=== PATIENT | female | born 1970 | race Caucasian/White ===

== ENCOUNTER 2018-03-17 17:04 | Emergency (ER) | payer OTHER ==
[2018-03-17] MEDS ORDERED: ONDANSETRON 4 MG/2 ML VIAL ONE (18:40)
[2018-03-17] MEDS ORDERED: MORPHINE 4 MG/ML SYR ONE (18:40)
[2018-03-17 19:00] LABS: Absolute Lymphocytes (CBC) 2.1 K/uL (0.7-4.9); Absolute Monocytes 0.4 K/uL (0.1-1.3); Absolute Neutrophil 3.9 K/uL (1.8-8.0); Basophils % 0.7 % (0-1.3); Eosinophils % 1.7 % (0-4.4); Hematocrit 40.6 % (36.0-45.0); Lymphocytes % 32.4 % (15.3-44.8); MPV 8.7 fL (7.6-11.3); Monocytes % 5.6 % (3.3-12.3); RBC Red Blood Cell Count 4.36 M/uL (3.86-4.86)
[2018-03-17 19:14] LABS: BUN Blood Urea Nitrogen 9 mg/dL (7-18); Bicarbonate 31 mmol/L (21-32); Glucose Level 81 mg/dL (74-106); Potassium 3.7 mmol/L (3.5-5.1); Sodium Level 143 mmol/L (136-145)
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
[2018-03-17] MEDS ORDERED: FENTANYL CITR 100 MCG/2 ML ONE (20:45)
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
== END 2018-03-17 21:28 | disposition home or self-care (01) ==
LOC: ER 17:04
DX: S13.4XXA Sprain of ligaments of cervical spine, initial encounter (principal); S33.5XXA Sprain of ligaments of lumbar spine, initial encounter; V49.40XA Driver injured in collision with unspecified motor vehicles in traffic accident, initial encounter; F17.210 Nicotine dependence, cigarettes, uncomplicated
CPT/HCPCS: 36415; 70450; 70486; 71260; 72125; 74177; 76377; 80048; 85025; J2405; J3010; Q9967

== ENCOUNTER 2018-03-27 18:46 | Emergency (ER) | payer OTHER ==
[2018-03-27] MEDS ORDERED: DIAZEPAM 10 MG/2 ML INJ SYRINGE ONE (19:24)
[2018-03-27] MEDS ORDERED: ONDANSETRON 4 MG/2 ML VIAL ONE (19:28)
[2018-03-27] MEDS ORDERED: NA CHLORIDE 0.9% 1,000 ML ONE (19:29)
[2018-03-27 19:42] LABS: Absolute Lymphocytes (CBC) 3.5 K/uL (0.7-4.9); Absolute Monocytes 0.7 K/uL (0.1-1.3); Absolute Neutrophil 7.7 K/uL (1.8-8.0); Eosinophils % 1.5 % (0-4.4); Hematocrit 50.8 % (36.0-45.0); Lymphocytes % 28.3 % (15.3-44.8); MPV 9.5 fL (7.6-11.3); Monocytes % 5.9 % (3.3-12.3); RBC Red Blood Cell Count 5.52 M/uL (3.86-4.86)
[2018-03-27 19:50] LABS: Protime INR 1.02
[2018-03-27 20:01] LABS: ALT/SGPT 26 U/L (12-78); AST/SGOT 17 U/L (15-37); Albumin 4.7 g/dL (3.4-5.0); Alkaline Phosphatase 119 U/L (45-117); BUN Blood Urea Nitrogen 10 mg/dL (7-18); Barbiturates NEGATIVE (NEGATIVE); Benzodiazepines NEGATIVE (NEGATIVE); Bicarbonate 26 mmol/L (21-32); Bilirubin Direct 0.2 mg/dL (0-0.2); Cocaine NEGATIVE (NEGATIVE); Glucose Level 101 mg/dL (74-106); METHAMPHETAM NEGATIVE (NEGATIVE); Methadone NEGATIVE (NEGATIVE); Opiates NEGATIVE (NEGATIVE); Phencyclidine NEGATIVE (NEGATIVE); Potassium 3.9 mmol/L (3.5-5.1); Protein, Total 8.8 g/dL (6.4-8.2); Sodium Level 138 mmol/L (136-145); THC Cannibis POSITIVE (NEGATIVE)
[2018-03-27 20:04] LABS: Urine Blood NEGATIVE (NEG); Urine Glucose NEGATIVE (NEG); Urine Protein TRACE (NEG)
--- NOTE | 2018-03-27 21:21 | RAD REPORT ---
EXAM DESCRIPTION: CT - Head Brain Wo Cont - 03/27/2018 9:10 pm CLINICAL HISTORY: Transient alteration of awareness COMPARISON: March 17 TECHNIQUE: Axial 5 mm thick images of the head were obtained without IV contrast. All CT scans are performed using dose optimization technique as appropriate and may include automated exposure control or mA/KV adjustment according to patient size. FINDINGS: No intracranial hemorrhage, mass, edema or shift of mid-line structures. No acute infarcti on changes seen. No abnormal extra-axial fluid collections. Ventricles are normal. No intracranial ch anges from comparison. Mastoid air cells and visualized portions of the paranasal sinuses are clear. No acute bony findings. IMPRESSION: Negative non-contrast CT head examination.
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
--- NOTE | 2018-03-28 16:29 | EKG ---
Test Date: 2018-03-27 Test Time: 19:36:34 Supervisor Coil Winding: CHIQUITAT MEASUREMENT RESULTS: Intervals: Rate: 77 AL: 128 QRSD: 86 QT: 384 QTc: 434 [place]: P: 70 AL: 128 QRS: 66 T: 67 INTERPRETIVE STATEMENTS: Normal sinus rhythm Normal ECG Compared to ECG 09/02/2007 14:21:16 Short AL interval no longer present Electronically Signed On 03-28-18 16:28:54 SHEET LAYER by Rasheed Noel
== END 2018-03-27 22:33 | disposition home or self-care (01) ==
LOC: ER 18:46
DX: E86.0 Dehydration (principal); T42.4X6A Underdosing of benzodiazepines, initial encounter; Z91.138 Patient's unintentional underdosing of medication regimen for other reason
CPT/HCPCS: 36415; 70450; 80048; 80076; 80307 ×8; 80320; 80329 ×2; 81003; 85025; 85610; 85730; 93005; 96361; 96374; 96375; 99284; J2405; J3360; J7030

== ENCOUNTER 2020-11-28 19:24 | Emergency (ER) | payer OTHER ==
[2020-11-28 20:54] LABS: Absolute Lymphocytes (CBC) 2.5 K/uL (0.7-4.9); Basophils % 0.5 % (0-1.3); Hematocrit 38.6 % (36.0-45.0); Lymphocytes % 35.6 % (15.3-44.8); MPV 8.9 fL (7.6-11.3); RBC Red Blood Cell Count 4.17 M/uL (3.86-4.86)
--- NOTE | 2020-11-28 21:04 | RAD REPORT ---
EXAM DESCRIPTION: RAD - Chest Single View - 11/28/2020 8:50 pm CLINICAL HISTORY: COUGH Chest pain. COMPARISON: Chest Pa And Lat (2 Views) dated 07/06/2020; CHEST SINGLE VIEW dated 09/02/2007; ABDOMEN A CUTE SERIES dated 03/13/2006 FINDINGS: Portable technique limits examination quality. The lungs are grossly clear. The heart is normal in size. No displaced fractures. IMPRESSION: No acute intrathoracic process suspected.
--- NOTE | 2020-11-28 21:34 | RAD REPORT ---
EXAM DESCRIPTION: CT - Thoracic Spine W/o Cont - 11/28/2020 9:19 pm CLINICAL HISTORY: Radiculopathy. PAIN COMPARISON: Chest Wo Cont dated 06/29/2020; Head C Spine Cap W Con dated 03/17/2018 TECHNIQUE: Axial CT imaging through the thoracic spine was performed with coronal and sagittal re-fo rmatted images. All CT scans are performed using dose optimization technique as appropriate and may include automated exposure control or mA/KV adjustment according to patient size. FINDINGS: Vertebral body heights are maintained. A compression fracture is not present. Prominent di sc space narrowing with degenerative disc disease mid thoracic spine. Thoracic spine alignment is within normal limits. No paraspinal masses or hematoma. IMPRESSION: No acute thoracic spine abnormality. Pronounced midthoracic degenerative change greater than seen at other levels of the thoracic spine. R ecommend nonemergent MRI thoracic spine followup.
[2020-11-28 21:36] LABS: Albumin 3.4 g/dL (3.4-5.0); Bilirubin Total 0.4 mg/dL (0.2-1.0); Protein, Total 6.6 g/dL (6.4-8.2)
[2020-11-28] MEDS ORDERED: dexAMETHasone 10 MG/ML VIAL ONE (21:39)
[2020-11-28] MEDS ORDERED: DIAZEPAM 5 MG TABLET ONE (21:39)
[2020-11-28] MEDS ORDERED: MORPHINE 4 MG/ML SYR ONE (21:39)
[2020-11-28] MEDS ORDERED: ONDANSETRON 4 MG/2 ML VIAL ONE (21:40)
[2020-11-28] MEDS ORDERED: NA CHLORIDE 0.9% 1,000 ML ONE (21:40)
[2020-11-28] MEDS ORDERED: KETOROLAC 30 MG/ML INJ ONE (21:40)
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
--- NOTE | 2020-11-28 21:50 | EDPHYS ---
Physician Documentation [facility] Name: Leann Kuhn Age: 50 yrs Sex: Female : 1970 Arrival Date: 11/28/2020 Time: 19:27 Bed 17 Private MD: ED Physician Miquel Vargas HPI: 11/28 20:38 This 50 yrs old Female presents to ER via Ambulatory with complaints of Back darren Pain. 20:38 The patient presents with pain that is acute, and decreased range of motion. The darren symptoms are located in the thoracic area. Onset: The symptoms/episode began/occurred 3 day(s) ago. The pain does not radiate. Associated signs and symptoms: The patient has no apparent associated signs or symptoms. The problem was sustained when lifting heavy object. Modifying factors: The patient symptoms are alleviated by remaining still, the patient symptoms are aggravated by any movement, bending, movement. The patient has not experienced similar symptoms in the past. 20:38 Severity of symptoms: At their worst the symptoms were mild, moderate, in the emergency darren department the symptoms are unchanged. 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 - Social history:: Smoking status: Patient reports the use of cigarette tobacco products, smokes one-half pack cigarettes per day. - Family history:: not pertinent. ROS: 20:38 Constitutional: Negative for fever, chills, and weight loss, Eyes: Negative for injury, darren pain, redness, and discharge, ENT: Negative for injury, pain, and discharge, Neck: Negative for injury, pain, and swelling, Cardiovascular: Negative for chest pain, palpitations, and edema, Respiratory: Negative for shortness of breath, cough, wheezing, and pleuritic chest pain, Abdomen/GI: Negative for abdominal pain, nausea, vomiting, diarrhea, and constipation, : Negative for injury, bleeding, discharge, and swelling, MS/Extremity: Negative for injury and deformity, Skin: Negative for injury, rash, and discoloration, Neuro: Negative for headache, weakness, numbness, tingling, and seizure. 20:38 Back: Positive for pain at rest, pain with movement. Exam: 20:38 Constitutional: This is a well developed, well nourished patient who is awake, alert, darren and in no acute distress. Head/Face: Normocephalic, atraumatic. Eyes: Pupils equal round and reactive to light, extra-ocular motions intact. Lids and lashes normal. Conjunctiva and sclera are non-icteric and not injected. Cornea within normal limits. Periorbital areas with no swelling, redness, or edema. ENT: Nares patent. No nasal discharge, no septal abnormalities noted. Tympanic membranes are normal and external auditory canals are clear. Oropharynx with no redness, swelling, or masses, exudates, or evidence of obstruction, uvula midline. Mucous membranes moist. Neck: Trachea midline, no thyromegaly or masses palpated, and no cervical lymphadenopathy. Supple, full range of motion without nuchal rigidity, or vertebral point tenderness. No Meningismus. Chest/axilla: Normal chest wall appearance and motion. Nontender with no deformity. No lesions are appreciated. Cardiovascular: Regular rate and rhythm with a normal S1 and S2. No gallops, murmurs, or rubs. Normal PMI, no JVD. No pulse deficits. Respiratory: Lungs have equal breath sounds bilaterally, clear to auscultation and percussion. No rales, rhonchi or wheezes noted. No increased work of breathing, no retractions or nasal flaring. Abdomen/GI: Soft, non-tender, with normal bowel sounds. No distension or tympany. No guarding or rebound. No evidence of tenderness throughout. Skin: Warm, dry with normal turgor. Normal color with no rashes, no lesions, and no evidence of cellulitis. MS/ Extremity: Pulses equal, no cyanosis. Neurovascular intact. Full, normal range of motion. Neuro: Awake and alert, GCS 15, oriented to person, place, time, and situation. Cranial nerves II-XII grossly intact. Motor strength 5/5 in all extremities. Sensory grossly intact. Cerebellar exam normal. Normal gait. Psych: Awake, alert, with orientation to person, place and time. Behavior, mood, and affect are within normal limits. 20:38 Back: pain, that is moderate, ROM is painful, with all movement, normal spinal alignment noted, CVA tenderness, is absent, vertebral tenderness, is not appreciated, muscle spasm, is appreciated in the left scapular area, right scapular area, left subscapular area, right subscapular area, left mid back and right mid back. 21:52 ECG was reviewed by the Attending Physician. [facility] Vital Signs: 19:48 BP 117 / 71; Pulse 80; Resp 18; Temp 98.7; Pulse Ox 100% on R/A; Weight 68.04 kg; wg Height 5 ft. 2 in. (157.48 cm); Pain 8/10; 21:40 BP 110 / 48; Pulse 75; Resp 15; Temp 97(O); Pulse Ox 100% on R/A; Pain 8/10; bc5 19:48 Body Mass Index 27.44 (68.04 kg, 157.48 cm) wg MDM: 20:20 Patient medically screened. [facility] 20:40 Differential diagnosis: arthritis, chronic back pain, Fatigue Fracture Osteoporosis darren ruptured disc, sprain. Data reviewed: vital signs, nurses notes, lab test result(s), radiologic studies, CT scan, plain films. Data interpreted: compliance monitor: rate is 80 beats/min, rhythm is regular, Pulse oximetry: on room air is 100 %. Test interpretation: by ED physician or midlevel provider: ECG, plain radiologic studies. Counseling: I had a detailed discussion with the patient and/or guardian regarding: the historical points, exam findings, and any diagnostic results supporting the discharge/admit diagnosis, lab results, radiology results, the need for outpatient follow up, for definitive care, a family practitioner, a orthopedic surgeon. 11/28 20:38 Order name: CBC with Diff [facility] 11/28 20:38 Order name: Comprehensive Metabolic Panel [facility] 11/28 20:38 Order name: Lipase [facility] 11/28 20:38 Order name: CBC with Automated Diff; Complete Time: 21:36 EDNJ 11/28 20:38 Order name: Comprehensive Metabolic Panel; Complete Time: 21:44 EDNJ 11/28 20:39 Order name: Lipase; Complete Time: 21:44 EDNJ 11/28 20:38 Order name: Thoracic Spine WO Cont CT; Complete Time: 21:36 [facility] 11/28 20:38 Order name: Chest Single View XRAY; Complete Time: 21:36 [facility] 11/28 21:59 Order name: Urine Dipstick-Ancillary EDMS 11/28 20:38 Order name: Urine Dipstick-Ancillary (obtain specimen); Complete Time: 22:04 [facility] 11/28 20:42 Order name: EKG; Complete Time: 20:42 [facility] 11/28 20:42 Order name: EKG - Nurse/Tech; Complete Time: 21:16 [facility] 11/28 21:47 Order name: Misc. Order: EKG PLEASE; Complete Time: 21:52 [facility] EC:52 Rate is 74 beats/min. Rhythm is regular. QRS [place] is Normal. ID interval is normal. QRS darren interval is normal. QT interval is normal. No Q waves. T waves are Normal. No ST changes noted. Clinical impression: Normal ECG and No evidence of ischemia. Interpreted by me. Reviewed by me. Administered Medications: 21:32 Drug: NS 0.9% 1000 ml Route: IV; Rate: 1 bolus; Site: right antecubital; bc5 21:32 Drug: Ketorolac 30 mg Route: IVP; Site: right upper arm; bc5 21:32 Drug: Decadron - Dexamethasone 10 mg Route: IVP; Site: right antecubital; bc5 21:32 Drug: Valium (diazepam) 5 mg Route: PO; bc5 21:33 Drug: morphine 4 mg Route: IVP; Site: right antecubital; bc5 21:33 Drug: Zofran (Ondansetron) 4 mg Route: IVP; Site: right antecubital; bc5 Disposition Summary: 11/28/20 21:50 Discharge Ordered Location: Home darren Problem: new darren Symptoms: have improved darren Condition: Stable darren Diagnosis - Strain of muscle and tendon of back wall of thorax darren - Other chronic pain darren - Fibromyalgia darren Followup: darren - With: Private Physician - When: 2 - 3 days - Reason: Recheck today's complaints, Continuance of care, Re-evaluation by your physician Discharge Instructions: - Discharge Summary Sheet darren - Chronic Back Pain darren - Chronic Pain, Adult darren - Myofascial Pain Syndrome and Fibromyalgia darren - Musculoskeletal Pain darren Forms: - Medication Reconciliation Form darren - Thank You Letter darren - Antibiotic Education darren - Prescription Opioid Use darren Prescriptions: - Ibuprofen 600 mg Oral Tablet - take 1 tablet by ORAL route every 6 hours As needed take with food; 30 tablet; darren Refills: 0, Product Selection Permitted - Cyclobenzaprine 5 mg Oral Tablet - take 1 tablet by ORAL route 3 times per day As needed; 15 tablet; Refills: 0, darren Product Selection Permitted Signatures: Dispatcher [employer] Miquel Ghotra MD MD cha Gamba, Liam, RN Aliza Robbins RN RN bc5
[2020-11-28 21:59] LABS: Urine Blood Trace-intact (Negative); Urine Glucose Negative (Negative); Urine Protein Negative (Negative); Urine Specific Gravity >=1.030 (1.005-1.030)
[2020-11-28 23:08] VITALS: O2SAT 100
[2020-11-28 23:09] VITALS: BP 110/48; TEMP 97
== END 2020-11-28 22:28 | disposition home or self-care (01) ==
LOC: ER 19:24
DX: S29.012A Strain of muscle and tendon of back wall of thorax, initial encounter (principal); G89.29 Other chronic pain; M79.7 Fibromyalgia; F17.210 Nicotine dependence, cigarettes, uncomplicated
CPT/HCPCS: 93005; 85025; 36415; 81003; 83690; 80053; 72128; 71045; 99284; J1100; J7030; J2405

== ENCOUNTER 2021-01-26 11:52 | Emergency (ER) | payer OTHER ==
[2021-01-26] MEDS ORDERED: SMZ./TMP. 800/160 MG TABLET ONE (12:11)
[2021-01-26] MEDS ORDERED: IBUPROFEN 400 MG TAB ONE (12:11)
[2021-01-26] MEDS ORDERED: IBUPROFEN 200 MG TAB PO ONE (12:11)
--- NOTE | 2021-01-26 12:25 | EDPHYS ---
Physician Documentation [facility] Name: Leann Kuhn Age: 50 yrs Sex: Female : 1970 Arrival Date: 01/26/2021 Time: 11:54 Bed 12 Private MD: JAVED Physician Miquel Vargas HPI: 01/26 12:22 This 50 yrs old Female presents to ER via Ambulatory with complaints of kb Facial Swelling, Abscess, Headache. 12:22 The patient presents with an abscess of the right religion. Description: draining, kb erythematous, swollen, warm. Modifying factors: the symptoms are alleviated by nothing, the symptoms are aggravated by pressure, squeezing the lesion and expressing the contents, touching. Severity of symptoms: At their worst the symptoms were moderate, in the emergency department the symptoms are unchanged. The patient has not experienced similar symptoms in the past. The patient has not recently seen a physician. 12:23 Onset: The symptoms/episode began/occurred last week. Possible cause(s): unknown. kb Associated signs and symptoms: Pertinent positives: drainage, erythema, swelling. Pt reports she poked herself with driftwood a week ago and it got infected. Now it is swollen and tender. 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 - Social history:: Smoking status: Patient reports the use of cigarette tobacco products, smokes one-half pack cigarettes per day. ROS: 12:21 Constitutional: Negative for fever, chills, and weight loss. kb 12:21 Skin: Positive for abscess, of the right religion. 12:21 All other systems are negative. Exam: 12:21 Constitutional: This is a well developed, well nourished patient who is awake, alert, kb and in no acute distress. Head/Face: Normocephalic, atraumatic. ENT: Moist Mucous membranes Respiratory: Respirations even and unlabored. No increased work of breathing, no retractions or nasal flaring. MS/ Extremity: Pulses equal, no cyanosis. Neurovascular intact. Full, normal range of motion. Neuro: Awake and alert, GCS 15, oriented to person, place, time, and situation. Moves all extremities. Normal gait. Psych: Awake, alert, with orientation to person, place and time. Behavior, mood, and affect are within normal limits. 12:21 Skin: abscess, that is moderate sized, of the right religion, with drainage. Vital Signs: 12:04 BP 141 / 94; Pulse 108; Resp 17; Temp 99.4; Pulse Ox 100% ; Weight 66.22 kg; Height 5 jt3 ft. 2 in. (157.48 cm); 12:34 Pulse 104; jt3 12:04 Body Mass Index 26.70 (66.22 kg, 157.48 cm) jt3 Procedures: 12:20 expressed small amount of purulent drainage from abscess. kb MDM: 12:00 Patient medically screened. kb 12:20 Data reviewed: vital signs, nurses notes. Data interpreted: Pulse oximetry: on room air kb is 100 %. Interpretation: normal. Counseling: I had a detailed discussion with the patient and/or guardian regarding: the historical points, exam findings, and any diagnostic results supporting the discharge/admit diagnosis, the need for outpatient follow up, a family practitioner, a general surgeon, to return to the emergency department if symptoms worsen or persist or if there are any questions or concerns that arise at home. Administered Medications: 12:15 Drug: Ibuprofen 600 mg Route: PO; jt3 12:28 Follow up: Response: No adverse reaction jt3 12:15 Drug: Bactrim (trimethoprim-sulfamethoxazole) (160 mg-800 mg (DS) 1 tablet Route: PO; jt3 12:28 Follow up: Response: No adverse reaction jt3 Disposition: 01/27 03:43 Co-signature as Attending Physician, Miquel Vargas MD I agree with the assessment and darren plan of care. Disposition Summary: 01/26/21 12:25 Discharge Ordered Location: Home Condition: Stable kb Diagnosis - Cutaneous abscess of head [any part, except face] - right religion kb Followup: kb - With: Emergency Department - When: As needed - Reason: Worsening of condition Followup: kb - With: Private Physician - When: 2 - 3 days - Reason: Recheck today's complaints, Continuance of care, Re-evaluation by your physician Discharge Instructions: - Discharge Summary Sheet kb - Skin Abscess, [id number] kb - Incision and Drainage, Care After kb Forms: - Medication Reconciliation Form kb - Thank You Letter kb - Antibiotic Education kb - Prescription Opioid Use kb Prescriptions: - Bactrim DS 800-160 mg Oral Tablet - take 1 tablet by ORAL route every 12 hours for 10 days; 20 tablet; Refills: 0, kb Product Selection Permitted Signatures: June Vigil, OBEY BRICEÑO-Miquel Ley MD MD cha Tejchma, Jordan, RN RN jt3
--- NOTE | 2021-01-26 12:25 | ER ---
Nurse's Notes [facility] Name: Leann Kuhn Age: 50 yrs Sex: Female : 1970 Arrival Date: 01/26/2021 Time: 11:54 Bed 12 Private MD: Diagnosis: Cutaneous abscess of head [any part, except face]-right presybeterian Presentation: 01/26 12:04 Chief complaint: Patient states: Pt. reports abscess to her left side of forehead for jt3 the last week. Pt. states she poked herself with a piece of metal. Abscess is 1-2inches wide, red, and swelling that radiates under her eye. Denies fever or chills. Endorses pain and headache. Past medical hx of RA, fibromyalgia, and IBS. Coronavirus screen: Vaccine status: Patient reports receiving the 2nd dose of the covid vaccine. Ebola Screen: Patient negative for fever greater than or equal to 101.5 degrees Fahrenheit, and additional compatible Ebola Virus Disease symptoms Patient denies exposure to infectious person. Patient denies travel to an Ebola-affected area in the 21 days before illness onset. Initial Sepsis Screen: Does the patient meet any 2 criteria? HR > 90 bpm. No. Patient's initial sepsis screen is negative. Does the patient have a suspected source of infection? Yes: Skin breakdown/wound. Risk Assessment: Do you want to hurt yourself or someone else? Patient reports no desire to harm self or others. Onset of symptoms was January 19, 2021. 12:04 Method Of Arrival: Ambulatory jt3 12:04 Acuity: SEBAS 4 jt3 Triage Assessment: 12:07 Headache History: Denies prior headaches. General: Appears in no apparent distress. jt3 Behavior is calm, cooperative. 12:34 Pain: Pain currently is 5 out of 10 on a pain scale. Pain began 1 week ago. Also jt3 complains of. 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 - Social history:: Smoking status: Patient reports the use of cigarette tobacco products, smokes one-half pack cigarettes per day. Screenin:09 Abuse screen: Denies threats or abuse. Denies injuries from another. Nutritional jt3 screening: No deficits noted. Tuberculosis screening: No symptoms or risk factors identified. Fall Risk None identified. Assessment: 12:09 Pain: Complains of pain in face radiates to left side of face. Neuro: Reports headache jt3 in right. Derm: Abscess located on face is quarter sized. Vital Signs: 12:04 BP 141 / 94; Pulse 108; Resp 17; Temp 99.4; Pulse Ox 100% ; Weight 66.22 kg; Height 5 jt3 ft. 2 in. (157.48 cm); 12:34 Pulse 104; jt3 12:04 Body Mass Index 26.70 (66.22 kg, 157.48 cm) jt3 ED Course: 11:54 Patient arrived in ED. as 11:59 June Vigil FNP-C is PHCP. kb 11:59 Miquel Vargas MD is Attending Physician. kb 12:00 June Vigil FNP-C is PHCP. kb 12:00 Miquel Vargas MD is Attending Physician. kb 12:04 Mario Mercedes, NADINE is Primary Nurse. jt3 12:07 Triage completed. jt3 12:07 Arm band placed on right wrist. jt3 12:09 Patient has correct armband on for positive identification. Placed in gown. Bed in low jt3 position. Side rails up X2. 12:09 No provider procedures requiring assistance completed. Patient did not have IV access jt3 during this emergency room visit. Administered Medications: 12:15 Drug: Ibuprofen 600 mg Route: PO; jt3 12:28 Follow up: Response: No adverse reaction jt3 12:15 Drug: Bactrim (trimethoprim-sulfamethoxazole) (160 mg-800 mg (DS) 1 tablet Route: PO; jt3 12:28 Follow up: Response: No adverse reaction jt3 Outcome: 12:25 Discharge ordered by . kb 12:34 Discharged to home ambulatory. jt3 12:34 Condition: good 12:34 Discharge instructions given to patient, Instructed on discharge instructions, follow up and referral plans. Demonstrated understanding of instructions, medications, Prescriptions given X 1. 12:42 Patient left the ED. jt3 Signatures: June Vigil, NAVARRO-C MOLD BUNCH TRIMMER-Lyndsay Callaway Jordan, RN RN jt3
[2021-01-26 12:49] VITALS: BP 141/94; TEMP 99.4; O2SAT 100
--- OUTSIDE RECORDS SUMMARY | 2021-01-26 23:35 | XMS REPORT | Continuity of Care Document ---
:1970 Author Organization [facility] t Address [address] [place] [address] Care Team Providers Name Role Phone Michi BRUCE, A Primary Care Physician Michi BRUCE, A Attending Clinician Payers Payer Name Policy Type Policy Number Effective Date Expiration Date S ource Problems Condition Condition Condition Status Onset Resolution Last Treating Co mments Source Name Details Category Date Date Treatment Clinician Date Fibromyalg Fibromyalg Disease Active U nivers ia ia 7-20 ity of 00:00: [place] 00 [facility] Chronic Chronic Disease Active 0 Univers bilateral bilateral 7-20 ity of low back low back 00:00: [place] pain with pain with 00 Medi reed bilateral bilateral Bran ch sciatica sciatica Arthralgia Arthralgia Disease Active U nivers , , 7-20 ity [place] 00 [facility] Reactive Reactive Disease Active Unive rs depression depression 7-20 it y of 00:00: [place] 00 [facility] Localized Localized Disease Active Uni vers swelling, swelling, 7-20 ity of mass or mass or 00:00: [place] lump of lump of 00 Medical neck neck Branch Rheumatoid Rheumatoid Disease Active 2019-0 U nivers arthritis arthritis 1- ity of 00:00: [address] Anxiety Anxiety Disease Active Univers ity of [facility] Chronic Chronic Disease Active Univers pain pain ity of [facility] Allergies, Adverse Reactions, Alerts This patient has no known allergies or adverse reactions. Social History Social Habit Start Date Stop Date Quantity Comments Source History [facility] o f Alcohol Frequency [place] M edical Branch History [facility] o f Alcohol Std Drinks [place] [facility] History [facility] o f Alcohol Binge [place] [facility] Branch Exposure to Not sure University of SARS-CoV-2 (event) [facility] Alcohol intake 2021-01-21 2021-01-21 Current drinker Unive rsity of 00:00:00 00:00:00 of alcohol [facility] (finding) Branch Cigarettes smoked 2020-08-02 2020-08-02 Univers ity of current (pack per 00:00:00 00:00:00 [facility] edical ) - Reported Branch Tobacco use and 2020-08-02 2020-08-02 Never used Universit y of exposure 00:00:00 00:00:00 [facility] Alcohol Comment 2020-08-02 2020-08-02 Couple drinks Univer sity of 00:00:00 00:00:00 per month [facility] Sex Ass[birth year] Universit y of 00:00:00 00:00:00 [facility] Smoking Status Start Date Stop Date Source Current every day smoker 2020-08-02 00:00:00 Uni versity of [facility] Medications Ordered Filled Start Stop Current Ordering Indication Dosage Frequency Signature Comments Components Source Medication Medication Date Date Medication? Clinician (SIG) Name Name MAGNESIUM 2020-03 Yes Take by Univ ers ORAL 1-08 mouth. ity of 12:13: [facility] ergocalcife 2020-03 Yes Take by Jacobo soria rol, 1-08 mouth. ity of vitamin D2, 12:13: 8000IU a [place] (VITAMIN D Medical ORAL) Branch TURMERIC 2020-03 Yes Take by Unive rs ORAL 1-08 mouth. ity of 12:13: [facility] pregabalin 2020-03 Yes [id number] 150mg Take 1 Univers 150 mg 1-08 capsule by ity of capsule 00:00: mouth 3 00 (three) Medical times Branch daily. hydrOXYzine 2020-03 Yes [id number] 25mg Take 1 Univers 25 mg 1-08 capsule by ity of capsule 00:00: mouth at [place] 00 bedtime. Medical Branch pregabalin 2020- No [id number] 75mg Take 1 Univers 75 mg 7-19 11-08 capsule by ity of capsule 00:00: 00:00 mouth 3 [place] 00 :00 (three) Medical times [place] daily. DULoxetine 2020- No [id number] 30mg Take 1 Univers (CYMBALTA) 10-01 capsule by it y of 30 mg 00:00: 00:00 mouth [place] capsule 00 :00 daily. Medical Branch hydrOXYchlo Yes 200mg Take 200 U nivers roQUINE 200 4-07 mg by ity of mg tablet 00:00: mouth 2 [place] 00 (two) Medical times [place] daily. Vital Signs Vital Name Observation Time Observation Value Comments Source Systolic blood 2021-01-21 17:24:00 119 mm[Hg] Univer sity of pressure [facility] Diastolic blood 2021-01-21 17:24:00 88 mm[facility]Hg[facility] 2021-01-21 17:24:00 114 /min [facility] Body temperature 2021-01-21 17:24:00 36.44 Jenny [facility] Respiratory rate 2021-01-21 17:24:00 18 /min [facility] Body height 2021-01-21 17:24:00 157.5 cm [facility] Body weight 2021-01-21 17:24:00 66.225 kg [facility] BMI 2021-01-21 17:24:00 26.70 kg/m2 [facility] Oxygen saturation in 2021-01-21 17:24:00 98 /min [facility] Arterial blood by [facility] Pulse oximetry Branch Procedures This patient has no known procedures. Encounters Start End Encounter Admission Attending Care Care Encounter Source Date/Time Date/Time Type Type Clinicians Facility Department ID 2021-01-21 2021-01-21 Office YOSELIN Borden [id number] Univers 10:58:53 14:13:04 Visit Janny [facility]ORT[id number] [facility] [id number] Shailesh pulliam [facility] [id number] [facility] BU[facility] Results This patient has no known results.
== END 2021-01-26 12:42 | disposition home or self-care (01) ==
LOC: ER 11:52
DX: L02.01 Cutaneous abscess of face (principal); M79.7 Fibromyalgia; F17.210 Nicotine dependence, cigarettes, uncomplicated
CPT/HCPCS: 99283